=== PATIENT | male | born 1970 | race American Indian/Alaskan Native ===

== ENCOUNTER 2017-03-16 11:20 | Emergency (ER) | payer OTHER ==
[2017-03-16] MEDS ORDERED: NACL 0.9% 1000 ML 1,000 ML IV ONE (11:34)
[2017-03-16] MEDS ORDERED: KEPPRA 1,000 MG/NS 0.75% 100ML 1,000 MG/100 ML BAG IV ONE (11:34)
[2017-03-16] MEDS ORDERED: ZOFRAN IV ONE (11:40)
--- NOTE | 2017-03-16 12:05 | XRay Report ---
AP CHEST: HISTORY: Hypertension AP view of the chest demonstrates a normal mediastinal and cardiac contour with clear lungs and normal bony and soft tissue structures. IMPRESSION: Unremarkable AP chest.
--- NOTE | 2017-03-16 12:33 | Emergency Department Report ---
ED General Adult HPI - General Stated complaint: LAC TO LT ARM Time Seen by Provider: 03/16/17 11:32 Source: EMS Mode of arrival: Stretcher Limitations: No Limitations, Other - History of Present Illness Initial comments: The patient has a pre-existing history of seizure disorder. He is on unknown medications. The information I have now is that this is his second or third seizure. Apparently had a seizure at home which was generalized causing a fall. He was holding a bowl I am told in his left hand which shattered causing a deep laceration on his left wrist. Substantial external blood loss was encountered at the scene by paramedics. They did not report any pulsatile flow. The patient was postictal on his arrival. -: Sudden Location: left, upper extremity Improves with: none Worsens with: none Associated Symptoms: other (postictal) Treatments Prior to Arrival: other (dressing applied) ED Review of Systems ROS: Stated complaint: LAC TO LT ARM Other details as noted in HPI Comment: Unobtainable due to pts medical conditions ED Past Medical Hx - Past Medical History Hx Seizures: Yes ED Physical Exam - General Limitations: Altered Mental Status (post ictus) General appearance: lethargic - Head Head exam: Present: atraumatic, normocephalic - Eye Eye exam: Present: normal appearance, PERRL, EOMI. Absent: scleral icterus - ENT ENT exam: Present: normal exam, mucous membranes moist - Neck Neck exam: Present: normal inspection - Respiratory Respiratory exam: Present: normal lung sounds bilaterally. Absent: respiratory distress - Cardiovascular Cardiovascular Exam: Present: regular rate, normal rhythm. Absent: systolic murmur, diastolic murmur, rubs, gallop - GI/Abdominal GI/Abdominal exam: Present: soft, normal bowel sounds. Absent: distended, tenderness, guarding, rebound - Rectal Rectal exam: Present: deferred - Extremities Exam Extremities exam: Present: other (the dressing was removed revealing a deep curvilinear laceration of the volar forearm ulnar side. There was no active bleeding at the time of redressing. A pressure dressing was reapplied.) - Back Exam Back exam: Present: normal inspection - Neurological Exam Neurological exam: Present: altered, other (evidence of ulnar nerve disruption is present) - Psychiatric Psychiatric exam: Present: normal affect, normal mood - Skin Skin exam: Present: warm, dry, intact, normal color. Absent: rash - Other Other exam information: The hand is warm and collateral flow from the radial artery is apparently adequate. I believe the ulnar artery has been involved. ED Course Vital Signs 03/16/17 03/16/17 03/16/17 11:38 12:11 12:12 Temperature 98.2 F Pulse Rate 65 71 68 Respiratory 16 18 17 Rate Blood Pressure 127/91 129/87 O2 Sat by Pulse 98 98 Oximetry 03/16/17 03/16/17 03/16/17 12:13 12:15 12:17 Temperature Pulse Rate 78 73 66 Respiratory 12 19 23 Rate Blood Pressure 129/87 129/87 129/87 O2 Sat by Pulse 99 98 98 Oximetry 03/16/17 03/16/17 03/16/17 12:19 12:21 12:23 Temperature Pulse Rate 80 78 75 Respiratory 14 21 23 Rate Blood Pressure 129/87 129/87 129/87 O2 Sat by Pulse 98 98 98 Oximetry 03/16/17 03/16/17 03/16/17 12:25 12:27 12:29 Temperature Pulse Rate 84 85 73 Respiratory 13 21 23 Rate Blood Pressure 129/87 129/87 129/87 O2 Sat by Pulse 98 99 96 Oximetry 03/16/17 03/16/17 03/16/17 12:30 12:31 12:33 Temperature Pulse Rate 59 L 65 61 Respiratory 13 19 18 Rate Blood Pressure 132/90 132/90 132/90 O2 Sat by Pulse 98 98 99 Oximetry 03/16/17 03/16/17 03/16/17 12:35 12:37 12:39 Temperature Pulse Rate 81 64 63 Respiratory 20 19 21 Rate Blood Pressure 132/90 132/90 132/90 O2 Sat by Pulse 99 99 99 Oximetry 03/16/17 03/16/17 12:41 13:57 Temperature 98.7 F Pulse Rate 61 77 Respiratory 19 18 Rate Blood Pressure 132/90 134/89 O2 Sat by Pulse 99 Oximetry - Reevaluation(s) Reevaluation #1: The patient's hand was placed in a pressure dressing. I went to reassess the patient and I found that the nurses were in the room and there was substantial bleeding. As such I reapplied a pressure dressing personally with a [place] and elastic wrap. I placed blood pressure cuff on the patient's forearm is inflated to 80 mmHg. Thus far, this is providing adequate hemostasis. It was substantial blood loss noted when I entered the room. The patient is being transfused 2 units. His initial hemoglobin was over 12. However, obviously there has been quite a bit of external blood loss. I spoke to Dr. Montano of the trauma team at [facility]. He was very kind to accept this patient for immediate transfer. I felt it safe for her to go by air ambulance. It is noted that the patient has elevated lactic acid level. This is probably due to seizure/hemorrhage. He has a slightly elevated troponin. His EKG shows evidence of LVH but no acute STEMI or ischemic changes. The significance of that finding is uncertain. 03/16/17 14:12 Reevaluation #2: The patient was given 2 g of Ancef as well as a tetanus vaccine. His family was counseled as to the need for transfer to a trauma center. 03/16/17 14:14 ED Medical Decision Making - Lab Data Result diagrams: 03/16/17 12:17 03/16/17 12:17 Laboratory Results - last 24 hr 03/16/17 03/16/17 03/16/17 12:17 12:17 12:17 WBC 11.4 H RBC 3.89 Hgb 12.2 Hct 37.9 MCV 97 H MCH 32 MCHC 32 RDW 14.6 Plt Count 204 Lymph % (Auto) 18.4 Hill % (Auto) 8.2 H Eos % (Auto) 0.9 Baso % (Auto) 0.6 Lymph # 2.1 Hill # 0.9 H Eos # 0.1 Baso # 0.1 Seg Neutrophils % 71.9 H Seg Neutrophils # 8.2 H Sodium 142 Potassium 3.4 L Chloride 106.1 Carbon Dioxide 18 L Anion Gap 21 BUN 18 Creatinine 1.3 Estimated GFR > 60 BUN/Creatinine Ratio 13.84 Glucose 178 H Calcium 8.0 L Magnesium 1.80 Laboratory Results - last 24 hr 03/16/17 03/16/17 03/16/17 12: 12:17 12:17 WBC 11.4 H RBC 3.89 Hgb 12.2 Hct 37.9 MCV 97 H MCH 32 MCHC 32 RDW 14.6 Plt Count 204 Lymph % (Auto) 18.4 Hill % (Auto) 8.2 H Eos % (Auto) 0.9 Baso % (Auto) 0.6 Lymph # 2.1 Hill # 0.9 H Eos # 0.1 Baso # 0.1 Seg Neutrophils % 71.9 H Seg Neutrophils # 8.2 H PT 17.2 H INR 1.33 H APTT 29.0 Sodium 142 Potassium 3.4 L Chloride 106.1 Carbon Dioxide 18 L Anion Gap 21 BUN 18 Creatinine 1.3 Estimated GFR > 60 BUN/Creatinine Ratio 13.84 Glucose 178 H Lactic Acid Calcium 8.0 L Magnesium Total Creatine Kinase Troponin T Triglycerides Cholesterol LDL Cholesterol Direct HDL Cholesterol Cholesterol/HDL Ratio Urine Color Urine Turbidity Urine pH Ur Specific [place] Urine Protein Urine Glucose (UA) Urine Ketones Urine Blood Urine Nitrite Urine Bilirubin Urine Urobilinogen Ur Leukocyte Esterase Urine WBC (Auto) Urine RBC (Auto) U Epithel Cells (Auto) Urine Bacteria (Auto) Hyaline Casts Urine Mucus Salicylates Acetaminophen Plasma/Serum Alcohol Blood Type Antibody Screen Crossmatch 03/16/17 03/16/17 03/16/17 12:17 12:17 12:17 WBC RBC Hgb Hct MCV MCH MCHC RDW Plt Count Lymph % (Auto) Hill % (Auto) Eos % (Auto) Baso % (Auto) Lymph # [place] # Eos # Baso # Seg Neutrophils % Seg Neutrophils # PT INR APTT Sodium Potassium Chloride Carbon Dioxide Anion Gap BUN Creatinine Estimated GFR BUN/Creatinine Ratio Glucose Lactic Acid 3.70 H* Calcium Magnesium Total Creatine Kinase 192 H Troponin T 0.145 H* Triglycerides 69 Cholesterol 116 LDL Cholesterol Direct 54 HDL Cholesterol 49 Cholesterol/HDL Ratio 2.36 Urine Color Urine Turbidity Urine pH Ur Specific [place] Urine Protein Urine Glucose (UA) Urine Ketones Urine Blood Urine Nitrite Urine Bilirubin Urine Urobilinogen Ur Leukocyte Esterase Urine WBC (Auto) Urine RBC (Auto) U Epithel Cells (Auto) Urine Bacteria (Auto) Hyaline Casts Urine Mucus Salicylates Acetaminophen Plasma/Serum Alcohol Blood Type O POSITIVE Antibody Screen Negative Crossmatch See Detail 03/16/17 03/16/17 03/16/17 12:17 12:17 12:17 WBC RBC Hgb Hct MCV MCH MCHC RDW Plt Count Lymph % (Auto) Hill % (Auto) Eos % (Auto) Baso % (Auto) Lymph # [place] # Eos # Baso # Seg Neutrophils % Seg Neutrophils # PT INR APTT Sodium Potassium Chloride Carbon Dioxide Anion Gap BUN Creatinine Estimated GFR BUN/Creatinine Ratio Glucose Lactic Acid Calcium Magnesium 1.80 Total Creatine Kinase Troponin T Triglycerides Cholesterol LDL Cholesterol Direct HDL Cholesterol Cholesterol/HDL Ratio Urine Color Urine Turbidity Urine pH Ur Specific [place] Urine Protein Urine Glucose (UA) Urine Ketones Urine Blood Urine Nitrite Urine Bilirubin Urine Urobilinogen Ur Leukocyte Esterase Urine WBC (Auto) Urine RBC (Auto) U Epithel Cells (Auto) Urine Bacteria (Auto) Hyaline Casts Urine Mucus Salicylates < 0.3 L Acetaminophen < 15.0 Plasma/Serum Alcohol Blood Type Antibody Screen Crossmatch 03/16/17 03/16/17 12:17 12:55 WBC RBC Hgb Hct MCV MCH MCHC RDW Plt Count Lymph % (Auto) Hill % (Auto) Eos % (Auto) Baso % (Auto) Lymph # [place] # Eos # Baso # Seg Neutrophils % Seg Neutrophils # PT INR APTT Sodium Potassium Chloride Carbon Dioxide Anion Gap BUN Creatinine Estimated GFR BUN/Creatinine Ratio Glucose Lactic Acid Calcium Magnesium Total Creatine Kinase Troponin T Triglycerides Cholesterol LDL Cholesterol Direct HDL Cholesterol Cholesterol/HDL Ratio Urine Color Yellow Urine Turbidity Clear Urine pH 6.0 Ur Specific [place] 1.016 Urine Protein 30 mg/dl Urine Glucose (UA) 50 Urine Ketones Neg Urine Blood Sm Urine Nitrite Neg Urine Bilirubin Neg Urine Urobilinogen < 2.0 Ur Leukocyte Esterase Neg Urine WBC (Auto) < 1.0 Urine RBC (Auto) 3.0 U Epithel Cells (Auto) < 1.0 Urine Bacteria (Auto) 1+ Hyaline Casts 1 Urine Mucus Few Salicylates Acetaminophen Plasma/Serum Alcohol < 0.01 Blood Type Antibody Screen Crossmatch - EKG Data -: EKG Interpreted by Ms EKG shows normal: sinus rhythm, axis, intervals, QRS complexes, ST-T waves Rate: normal - EKG Data Interpretation: [facility] - Radiology Data Radiology results: pending Critical Care Time: Yes Critical care time in (mins) excluding proc time.: 60 Critical care attestation.: If time is entered above; I have spent that time in minutes in the direct care of this critically ill patient, excluding procedure time. ED Disposition Clinical Impression: Seizures, generalized convulsive, History of seizure, Elevated troponin, Elevated lactic acid level, Hemorrhagic shock Laceration of wrist Qualifiers: Encounter type: initial encounter Laterality: left Qualified Code(s): S61.512A - Laceration without foreign body of left wrist, initial encounter Ulnar artery injury Qualifiers: Encounter type: initial encounter Laterality: left Qualified Code(s): S55.002A - Unspecified injury of ulnar artery at forearm level, left arm, initial encounter Ulnar nerve injury Qualifiers: Encounter type: initial encounter Location of peripheral nerve injury: wrist Laterality: left Qualified Code(s): S64.02XA - Injury of ulnar nerve at wrist and hand level of left arm, initial encounter Disposition: [id number] ANOTHER TYPE HLTHCARE Is pt being admited?: No Does the pt Need Aspirin: No Condition: Stable Referrals: PRIMARY CARE, [Primary Care Provider] - 3-5 Days
[2017-03-16 12:57] LABS: Anion Gap 21 mmol/L; BUN/Creatinine Ratio 13.84; Blood Urea Nitrogen 18 mg/dL (9-20); Carbon Dioxide 18 mmol/L (22-30); Chloride 106.1 mmol/L (98-107); Glucose 178 mg/dL (75-100); Potassium 3.4 mmol/L (3.6-5.0); Sodium 142 mmol/L (137-145)
[2017-03-16 12:58] LABS: Basophils % (Auto) 0.6 % (0.0-1.8); Eosinophils % (Auto) 0.9 % (0.0-4.3); Hematocrit 37.9 % (35.5-45.6); Hemoglobin 12.2 gm/dl (11.8-15.2); Mean Corpuscular HGB Conc 32 % (32-34); Mean Corpuscular Hemoglobin 32 pg (28-32); Mean Corpuscular Volume 97 fl (84-94); Platelet Count 204 K/mm3 (140-440); Red Blood Count 3.89 M/mm3 (3.65-5.03); Red Cell Distribution Width 14.6 % (13.2-15.2); White Blood Count 11.4 K/mm3 (4.5-11.0)
[2017-03-16 13:04] LABS: INR 1.33 (0.87-1.13)
[2017-03-16] MEDS ORDERED: NACL 0.9% 500 ML 500 ML IV ONE (13:16)
[2017-03-16] MEDS ORDERED: XYLOCAINE 1%/ EPI 1:100,000 INFILTRATI ONE (13:18)
[2017-03-16 13:33] LABS: Bacteria,Urine 1+ /HPF (Negative); Bilirubin,Urine NEG (Negative); Blood,Urine SM (Negative); Ketones,Urine NEG (Negative); Leukocyte Esterase,Urine NEG (Negative); Mucus,Urine FEW /HPF; Nitrite,Urine NEG (Negative); Urobilinogen,Urine < 2.0 mg/dL (<2.0); WBC,Urine < 1.0 /HPF (0.0-6.0)
[2017-03-16] MEDS ORDERED: BOOSTRIX IM ONE (13:37)
[2017-03-16] MEDS ORDERED: ceFAZolin 2 GM in NACL 0.9% 100 ML IV ONE (13:37)
--- NOTE | 2017-03-16 14:45 | XRay Report ---
LEFT FOREARM, ONE VIEW History: Trauma to wrist. Injury. Findings: Single limited portable view of the left forearm is presented. Soft tissue bandage overlies the forearm suggesting a soft tissue injury. No acute osseous injury or radiopaque foreign body is detected on single view. Impression: Soft tissue findings as described.
[2017-03-16 14:47] VITALS: BP 161/107
[2017-03-16] MEDS ORDERED: ZOFRAN ONE (14:47)
== END 2017-03-16 18:56 | disposition other institution (70) ==
LOC: ED 11:20
DX: S61.512A Laceration without foreign body of left wrist, initial encounter (principal); S55.00 Unspecified injury of ulnar artery at forearm level; S64.02XA Injury of ulnar nerve at wrist and hand level of left arm, initial encounter; W18.30XA Fall on same level, unspecified, initial encounter; Y93.89 Activity, other specified; Y92.89 Other specified places as the place of occurrence of the external cause; Y99.8 Other external cause status
CPT/HCPCS: 36415; 71010; 73090; 80048; 80061; 81001; 82140; 82550; 82962; 83735; 84484; 85025; 85610; 85730; 86850; 86900; 86901; 86920; 93005; 93010; 96361; 96374; 96375; 99285; G0480; J1953; J2405; J7030; J7040; P9016; 80320; J0690